=== PATIENT | male | born 1970 | race Caucasian/White ===

== ENCOUNTER 2019-11-09 12:03 | Observation (INO) | payer BC ==
[~2019-11-09] VITALS: Ht 165.1 cm; Wt 99.0 kg
[2019-11-09] MEDS ORDERED: XANAX 0.5MG0.5 MG PO ×2 (12:19→12:20)
[2019-11-09] MEDS ORDERED: PRIL40 PO (12:20)
[2019-11-09] MEDS ORDERED: TIAZAC120 MG PO (12:21)
[2019-11-09] MEDS ORDERED: ELIQUIS 5MG PO (12:22)
[2019-11-09] MEDS ORDERED: NITROSTAT0.4 MG/TAB SL (12:22)
[2019-11-09 12:25] LABS: BASO % 0.3 % (0.0-2.0); EOS # 0.1 (0.0-0.7); EOS % 0.5 % (0-4.0); GRAN # 7.8 (1.4-6.5); GRAN % 71.6 % (42.2-75.2); HEMATOCRIT 49.3 % (42.0-52.0); HEMOGLOBIN 17.1 g/dl (13.5-18.0); LYMPH # 1.6 (1.2-3.4); LYMPH % 14.7 % (20.0-51.0); MEAN CELL VOLUME 88 fl (80.0-100.0); MEAN CORPUSCULAR HEMOGLOBIN 31 pg (27.0-31.0); MEAN CORPUSCULAR HGB CONC 35 g/dl (33.0-37.0); MEAN PLATELET VOLUME 10.9 fl (7.4-10.4); MONO # 1.4 (0.1-0.6); MONO % 12.4 % (1.7-9.3); PLATELET COUNT 179 K/mm3 (130-400); RED BLOOD COUNT 5.61 M/mm3 (4.20-5.60); REDCELL DISTRIBUTION WIDTH-CV 12.4 % (11.5-14.5)
[2019-11-09 12:30] LABS: PROTHROMBIN TIME 11.3 SECONDS (9.7-12.8)
[2019-11-09 12:35] LABS: ALANINE AMINOTRANSFERASE 42 U/L (21-72); ALBUMIN 4.8 gm/dL (3.5-5.0); ALKALINE PHOSPHATASE 233 U/L (50-136); ANION GAP 12 mmol/L (7-16); AST,SGOT 24 U/L (15-37); BILIRUBIN,TOTAL 0.8 mg/dL (0.0-1.0); BLOOD UREA NITROGEN 23 mg/dL (9-20); CALCIUM 9.5 mg/dL (8.4-10.2); CARBON DIOXIDE 25 mmol/L (22-30); CHLORIDE 102 mmol/L (98-107); CREATININE, serum 0.88 (0.66-1.25); GLUCOSE 121 mg/dL (74-106); LIPASE 89 U/L (23-300); POTASSIUM 4.3 mmol/L (3.4-5.0); SODIUM 139 mmol/L (137-145)
[2019-11-09 12:48] LABS: TROPONIN-I < 0.012 ng/mL (0.000-0.035)
[2019-11-09 17:05] VITALS: BP 147/70; PULSE 82; TEMP 97.8
--- NOTE | 2019-11-09 18:18 | NUR ---
Pt up to room 351. A&O, independent in room. Pt on room air, breathing is even and unlabored. Pt on tele, post successful cardioversion. Pt denies any chest pain, N/V/D, SOB. Some dizziness upon first getting up to go to restroom. Assisted by this nurse, pt has steady gait. RAC INT IV flushes w/o complications. 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 Verbal order from Dr. Lujan to continue home medications and hold diltiazem. PRN Xanax administered per NOV. No other concerns expressed.
[2019-11-09 20:00] VITALS: BP 122/81; PULSE 64; TEMP 98.2
[2019-11-09 20:40] VITALS: BP 133/89; PULSE 87; TEMP 98.5
--- NOTE | 2019-11-09 20:40 | NUR ---
Patient resting in bed, no complaints of pain at this time. Patient vital signs within normal limits. Patient remains on telemetery. Patient denies needs at this time.
[2019-11-10] VITALS (7 sets, daily range): BP systolic 110–140; BP diastolic 48–89; PULSE 71–88; TEMP 98.2–98.7
--- NOTE | 2019-11-10 06:39 | NUR ---
Patient was able to rest comfortably all night. Patient stated he was able to sleep well for the first time in months. No complaints of pain, vital signs normal.
--- NOTE | 2019-11-10 08:30 | NUR ---
Assessment completed, alert/oriented, vital signs stable, denies any further chest pain or discomfort, heart RRR/ SR on tele, distal pulses are palpable, patient stated he slept great for the first time in a long time and is feeling much better today, lungs CTA/ no resp.difficulty, we have faxed over paperwork to [facility] to have patient fitted/ set-up with a life vest, also called his pharmacy and confirmed his actual Eliquis dosing is BID, he is sitting up at bedside eating breakfast, denies other needs at this time, will continue to monitor
--- NOTE | 2019-11-10 16:00 | NUR ---
Report received from [facility]BAR[facility] [place]. Called [facility] for update, he will put dishcarge orders in shortly.
--- NOTE | 2019-11-10 16:32 | NUR ---
[facility] met with the patient to complete initial intake. The patient lives alone in [place]. The patient denies DME usage and reports independence with ADLs. The patient's PCP is Dr. Gabi Hutchinson and patient receives medication from [facility] with no difficulties. The patient does not have advanced directives in the EMR and was on interested in [facility] at this time. The patient will drive himself home. There are no addditional needs at this time.
[2019-11-10] MEDS ORDERED: PACERONE400 MG PO (16:36)
[2019-11-10] MEDS ORDERED: ZESTRIL 5MG5 MG PO (16:37)
--- NOTE | 2019-11-10 18:17 | NUR ---
Discharge teachign completed at this time. Pt received discharge packet, called in scripts to [facility] pharmacy. Pt verbalized understanding. IV will be dc'd when pt ready to leave after eating supperl. Will leave with all belongings and be escorted out by medical staff. Criteria met.
== END 2019-11-10 18:36 | disposition home or self-care (01) ==
LOC: COL.ER 12:03 → MEDICAL 16:06
PROVIDERS: Emergency Medicine; ADMIT Internal Medicine Interventional Cardiology
DX: I48.91 Unspecified atrial fibrillation (principal); I11.0 Hypertensive heart disease with heart failure; I50.9 Heart failure, unspecified; G47.33 Obstructive sleep apnea (adult) (pediatric); K21.9 Gastro-esophageal reflux disease without esophagitis; Z88.0 Allergy status to penicillin; Z88.8 Allergy status to other drugs, medicaments and biological substances
CPT/HCPCS: G0378; J2270; J2704; J3010; J7030